=== PATIENT | male | born 1945 ===

== ENCOUNTER 2018-02-17 17:52 | Inpatient (IN) | payer SELFPAY ==
[~2018-02-17 17:52] MED LIST: Calcium Chloride 1 GM/10 ML Abboject SYRINGE ONE; EPINEPHrine 1 MG/10 ML Abboject SYRINGE ONE; ISOVUE-370 76%-LOCM 1 ML ONE; Sodium Bicarb 50 MEQ/50 ML Abboject 8.4% SYRINGE ONE
[2018-02-17 18:08] LABS: Base Excess-Venous -7.2 mmol/L (0 (+/- 2.5)); Bicarbonate (HCO3v) 25.8 mmol/L (1.0-85.0); CO2 Tension (PvCO2) 96.5 mmHg (41.0-51.0); Calcium, Ionized 1.09 mmol/L (1.12-1.32); Hemoglobin - Calc 13.4 g/dL (12.0-18.0); Lactate 10.31 mmol/L (0.50-2.20); O2 Tension (PvO2) 43.6 mmHg (35.0-45.0); Potassium 3.5 mmol/L (3.4-4.7); T. Carbon Dioxide 28.8 mmol/L (1.0-85.0); pH (Venous) 7.035 (7.35-7.45); vO2 Saturation-calc 55.3 % (94-98)
[2018-02-17 18:09] LABS: #Basophils 0.1 thou/uL (0.0-0.2); #Eosinphils 0.4 thou/uL (0.0-0.7); #Lymphocytes 4.8 thou/uL (1.20-3.40); #Monocytes 0.7 thou/uL (0.11-0.59); #Neutrophils 10.3 thou/uL (1.40-6.50); %Basophils 0.4 % (0.0-1.0); %Eosinophils 2.3 % (0.0-10.0); %Lymphocytes 29.4 % (21.0-51.0); %Monocytes 4.1 % (0.0-10.0); %Neutrophils 63.8 % (42.0-75.0); Hemoglobin 12.7 g/dL (14.0-18.0); Mean Corpuscular HGB CONC 29.9 g/dL (32.0-36.0); Mean Corpuscular Hemoglobin 28.9 pg (27.0-31.0); Mean Corpuscular Volume 96.5 fL (78.0-98.0); Mean Platelet Volume 7.9 fL (7.4-10.4); Platelet Count 161 thou/uL (130-400); RBC Distribution Width 13.9 % (11.5-14.5); Red Blood Cell (RBC) Count 4.39 mill/uL (4.70-6.10); White Blood Cell (WBC) Count 16.2 thou/uL (4.8-10.8)
[2018-02-17 18:10] LABS: Actual Bicarbonate (HCO3a) 32.2 mEq/L (22-28); Base Excess (BEa) -0.2 mEq/L (-2.0 to +3.0); CO2 Tension 106.8 mmHg (35.0-45.0); O2 Tension (PaO2) 83.6 mmHg (> 70.0)
[2018-02-17 18:11] LABS: Analyzer IN Cardio ER; Calcium, Ionized 1.9 mmol/L (1.12-1.30); Hematocrit-ABG 34.9 % (42.0-52.0); Hemoglobin (Hb) 12.4 g/dL (14.0-18.0); Puncture Site L RADIAL
[2018-02-17 18:14] LABS: INR-International Normal Ratio 1.4; PTT 35.4 SEC (22.9-36.1); Prothrombin Time 16.8 SEC (12.0-14.7)
[2018-02-17 18:22] LABS: Acetaminophen Less than 6.0 mcg/mL (10.0-30.0); Alcohol Less than 10 mg/dL (Less than 10); Salicylate Less than 8.0 mg/dL (15.0-30.0)
[2018-02-17 18:23] LABS: Band 7 % (5-11); Eosinophils 1 % (0-10); Lymphocytes 28 % (21-51); MDiff Complete? YES; Monocytes 5 % (0-10); Neutrophil 59 % (42-75); Ovalocytes SLIGHT = 2-5 cells (100X) (0-1/hpf); PLT Morphology Comment Appears Adequate; Polychromasia SLIGHT = 2-3 cells (100X) (0-2/hpf)
[2018-02-17 18:26] LABS: ALT (SGPT) 61 U/L (8-55); AST (SGOT) 92 U/L (5-34); Alkaline Phosphatase 133 U/L (40-150); Anion Gap 29 mmol/L (10-20); BUN (Urea Nitrogen) 25 mg/dL (8.4-25.7); Bilirubin, Total 0.5 mg/dL (0.2-1.2); CK (CPK) 176 U/L (30-200); CKMB 6.6 ng/mL (0-6.6); Calc. Creatinine Clearance 0 mL/min (70-130); Calcium 8.4 mg/dL (7.8-10.44); Carbon Dioxide 13 mmol/L (23-31); Chloride 108 mmol/L (98-107); Estimated GFR-MDRD 32; Globulin 2.5 g/dL (2.4-3.5); Glucose 291 mg/dL (83-110); Potassium 4.8 mmol/L (3.5-5.1); Protein, Total 5.5 g/dL (5.8-8.1); Sodium 145 mmol/L (136-145); Troponin I 0.108 ng/mL (< 0.028)
[2018-02-17] MEDS ORDERED: Lidocaine 1% (PF) 30 ML VIAL ONE (19:00)
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
[2018-02-17] MEDS ORDERED: Dextrose 50% Abboject 50 ML SYRINGE SLOW IVP PRN (20:55)
[2018-02-17] MEDS ORDERED: Ondansetron ODT 4 MG TAB PO PRN (20:55)
[2018-02-17] MEDS ORDERED: Sodium Chloride 0.9% 1,000 ML IV SCH (20:55)
[2018-02-17] MEDS ORDERED: Ondansetron HCl/PF 4 MG/2 ML Vial IVP PRN (20:55)
[2018-02-17] MEDS ORDERED: hydrALAZINE 20 MG/ML VIAL SLOW IVP PRN (20:55)
[2018-02-17] MEDS ORDERED: Ventilator Sedation Protocol 1 EACH FS SCH (20:55)
[2018-02-17] MEDS ORDERED: Dextrose 5% in Water 1,000 ML IV PRN (20:55)
[2018-02-17 21:01] VITALS: BMI 38.3
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
[2018-02-17] MEDS ORDERED: Propofol BOLUS 1,000 MG/100 ML VIAL IV PRN (21:16)
[2018-02-17] MEDS ORDERED: Propofol 1,000 MG/100 ML VIAL IV PRN (21:16)
[2018-02-17] MEDS ORDERED: fentaNYL Citrate/PF 2,000 MCG in Sodium Chloride 0.9% 60 ML IV SCH (21:16)
[2018-02-17] MEDS ORDERED: Lorazepam 2 MG/ML VIAL SLOW IVP PRN (21:16)
[2018-02-17] MEDS ORDERED: Fentanyl BOLUS 250 ML IVPB PRN (21:16)
[2018-02-17] MEDS ORDERED: DISCONTINUE PREVIOUS NARCOTIC PAIN MEDICATIONS AND BENZODIAZEPINES FS SCH (21:16)
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
[2018-02-17 21:47] LABS: Lactic Acid 7.8 mmol/L (0.5-2.2)
[2018-02-17 22:10] VITALS: BP 98/54
[2018-02-17 22:53] LABS: CKMB 55.2 ng/mL (0-6.6); Troponin I 4.574 ng/mL (< 0.028)
[2018-02-17 23:24] LABS: CO2 Tension 71.1 mmHg (35.0-45.0); pH, Arterial 7.17 (7.35-7.45)
[2018-02-17 23:25] LABS: Actual Bicarbonate (HCO3a) 25.1 mEq/L (22-28); Base Excess (BEa) -4.7 mEq/L (-2.0 to +3.0); Hematocrit-ABG 35.9 % (42.0-52.0); Hemoglobin (Hb) 12.3 g/dL (14.0-18.0); O2 Tension (PaO2) 55.2 mmHg (> 70.0)
[2018-02-17 23:26] LABS: Analyzer IN Cardio ER; Calcium, Ionized 1.3 mmol/L (1.12-1.30); Puncture Site L RADIAL
[2018-02-17 23:27] LABS: ALV-art Gradient 568.925 (0-20)
[2018-02-18 00:31] VITALS: TEMP 97.9
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
[2018-02-19] MEDS ORDERED: Prevnar 13-Val Conj/PF 0.5 ML SYRINGE IM ONE (09:00)
== END 2018-02-18 03:30 | disposition expired | DRG 208 ==
LOC: ERS 17:52 → EDBD 17:52 → CCU 20:40
PROVIDERS: ADMIT Surgery; ATTEND Surgery
PROC: 04HK33Z Insertion of Infusion Device into Right Femoral Artery, Percutaneous Approach (ICD-10-PCS; principal; 2018-02-17)
PROC: 05H533Z Insertion of Infusion Device into Right Subclavian Vein, Percutaneous Approach (ICD-10-PCS; 2018-02-17)
PROC: 0W9900Z Drainage of Right Pleural Cavity with Drainage Device, Open Approach (ICD-10-PCS; 2018-02-17)
PROC: 5A1945Z Respiratory Ventilation, 24-96 Consecutive Hours (ICD-10-PCS; 2018-02-17)
DX: J96.01 Acute respiratory failure with hypoxia (principal); S06.0X9A Concussion with loss of consciousness of unspecified duration, initial encounter; S27.0XXA Traumatic pneumothorax, initial encounter; E87.2 Acidosis; J96.02 Acute respiratory failure with hypercapnia; I46.9 Cardiac arrest, cause unspecified; E83.51 Hypocalcemia; F17.210 Nicotine dependence, cigarettes, uncomplicated; Z86.73 Personal history of transient ischemic attack (TIA), and cerebral infarction without residual deficits; V43.52XA Car driver injured in collision with other type car in traffic accident, initial encounter; Y92.410 Unspecified street and highway as the place of occurrence of the external cause; R40.2432 Glasgow coma scale score 3-8, at arrival to emergency department
CPT/HCPCS: 36416; 36430; 70450; 71045; 71275; 72125; 74177; 80053; 80307; 82330; 82550; 82553; 82803; 82805; 83605; 84484; 85025; 85610; 85730; 86850; 86900; 86901; 92950; 93005; 94002; 96361; 96374; 96375; 96376; G0390; J0171; J0282; J2001